=== PATIENT | female | born 1955 | race Caucasian/White ===

== ENCOUNTER 2018-12-19 19:00 | Emergency (ER) | payer MEDICARE, OTHER ==
[~2018-12-19] VITALS: Ht 177.8 cm; Wt 117.9 kg
[~2018-12-19 19:00] MED LIST: ASPIRIN325 PO; COLACE100 MG PO; HYDROCODONE-AP1 EAC6 PO; LEVOTHYROXINE 0.1 MG PO; OXYCODONE HCL 55 MG PO; ROXICODONE5 MG PO; UNICOMPLEX M TA1 TA1 PO; XARELTO10 M1 PO; ZOFRAN ODT4 MG SUBLING
[2018-12-19 21:10] VITALS: BP 130/83
--- NOTE | 2018-12-20 17:18 | EKG ---
[place] [address] ELECTROCARDIOGRAM REPORT Name: ASHOK RICE Room: [facility]#: [id number] Admission: 12/19/18 Attend Phys: Discharge: 12/19/18 Date of : 51 Report #: [id number] THIS REPORT FOR: //name// [facility] ED Test Date: 2018-12-19 Test Time: 21:05:55 Pat Name: ASHOKTomas RICE Department: Room: Gender: F Early Childhood Specialist: [place] : 1955 Requested By: Ankita Vinson Order Number: [id number] MD: Jim Campos Measurements Intervals [place] Rate: 101 P: 35 DE: 171 QRS: 8 QRSD: 104 T: 48 QT: 350 QTc: 454 Interpretive Statements Sinus tachycardia Compared to ECG 12/16/2015 10:15:44 Sinus rhythm no longer present Electronically Signed On 12-20-2018 17:17:51 CDT by Jim Campos [email or web address] <ELECTRONICALLY SIGNED> By: Jim Campos MD, [facility] 12/20/18 1717 04 Jim Campos MD, FACC /EPI
== END 2018-12-19 21:10 | disposition still patient (30) ==
LOC: M.ERS 19:00
DX: T18.128A Food in esophagus causing other injury, initial encounter (principal); Z90.710 Acquired absence of both cervix and uterus; Z96.651 Presence of right artificial knee joint; Y92.89 Other specified places as the place of occurrence of the external cause